=== PATIENT | male | born 2000 | race Caucasian/White ===

== ENCOUNTER 2024-01-29 21:00 | Emergency (ER) | payer SELFPAY ==
[~2024-01-29] VITALS: Ht 172.7 cm; Wt 97.8 kg
[2024-01-29 21:07] VITALS: TEMP 98.5; O2SAT 97
[2024-01-29] MEDS: HYDROCODONE/ACETAMINOPHEN 5/325MG TABLET PO ONE (21:35)
[2024-01-29] MEDS: ONDANSETRON 4MG ODT PO ONE (21:35)
[2024-01-29] MEDS: DIAZEPAM 2 MG TABLET PO ONE (21:55)
[2024-01-29] MEDS ORDERED: TOPUD PO (23:29)
[2024-01-29] MEDS ORDERED: IBUP-2028 MT (23:29)
[2024-01-29 23:40] VITALS: BP 134/74; PULSE 69; RESP 14; O2SAT 99
== END 2024-01-29 23:40 | disposition home or self-care (01) ==
LOC: ER 21:00
DX: S43.014A Anterior dislocation of right humerus, initial encounter (principal); F12.90 Cannabis use, unspecified, uncomplicated; X58.XXXA Exposure to other specified factors, initial encounter; Y93.89 Activity, other specified; Y92.89 Other specified places as the place of occurrence of the external cause; Y99.8 Other external cause status
CPT/HCPCS: 99284; 23650; 73030; Q0162